=== PATIENT | male | born 1980 | race Two or more races ===

== ENCOUNTER 2019-03-17 11:16 | Emergency (ER) | payer OTHER ==
[~2019-03-17] VITALS: Ht 180.3 cm; Wt 107.6 kg
[2019-03-17 11:45] VITALS: BP 156/99
[2019-03-17] MEDS ORDERED: DIPH,PERTUSS(ACELL),TET VAC/PF 0.5 ML IM-VACC ONE ×2 (12:00→12:04)
--- NOTE | 2019-03-17 13:25 | NUR ---
Patient/Caregiver given discharge instructions and they have confirmed that they understand the instructions. Patient ambulatory with crutches
== END 2019-03-17 13:27 | disposition home or self-care (01) ==
LOC: ED 13:16
DX: S80.01XA Contusion of right knee, initial encounter (principal); S50.811A Abrasion of right forearm, initial encounter; V27.4XXA Motorcycle driver injured in collision with fixed or stationary object in traffic accident, initial encounter; Y93.89 Activity, other specified; Y92.410 Unspecified street and highway as the place of occurrence of the external cause; Y99.8 Other external cause status
CPT/HCPCS: 72110; 72190; 90471; 90715